=== PATIENT | male | born 1945 | race Caucasian/White ===

== ENCOUNTER 2018-04-18 08:10 | Observation (INO) | payer OTHER ==
[~2018-04-18] VITALS: Ht 167.6 cm; Wt 100.6 kg
[~2018-04-18 08:10] MED LIST: ULTRAM50 MG PO
[2018-04-18 08:46] LABS: BASOPHIL (%) 0.3 % (0-1); EOSINOPHIL COUNT 0.2 K/uL (0-0.3); HEMATOCRIT 42.2 % (38.0-50.0); HEMOGLOBIN 14.4 G/DL (12.5-16.6); IMMATURE GRANULOCYTE (%) 0.3 % (0.0-0.7); LYMPHOCYTE (%) 15.1 % (15-42); LYMPHOCYTE COUNT 1.5 K/uL (1.0-2.8); MCH 29.7 PG (29.0-34.0); MCHC 34.1 G/DL (30.0-36.0); MONOCYTE (%) 7.9 % (3-12); MONOCYTE COUNT 0.8 K/uL (0-0.8); NEUTROPHIL (%) 74.4 % (45-76); NEUTROPHIL COUNT 7.5 K/uL (1.8-6.4); PLATELET COUNT 197 K/uL (156-360); RBC DIS.WIDTH-CV 14.2 % (11.8-14.6); RBC DIS.WIDTH-SD 45.1 % (39-53); RED BLOOD COUNT 4.85 M/uL (4.00-5.50); WHITE BLOOD COUNT 10.1 K/uL (4.1-10.2)
[2018-04-18 08:52] LABS: INTER. NORMALIZED RATIO 1.2
[2018-04-18 08:55] LABS: PTT 24.9 SEC (25-37)
[2018-04-18 09:03] LABS: ALBUMIN 4.1 g/dL (3.2-4.8); CHLORIDE 103 mEq/L (99-109); POTASSIUM 3.5 mEq/L (3.7-5.4); SODIUM 139 mEq/L (136-147)
[2018-04-18 09:05] LABS: GLUCOSE 127 mg/dL (70-99)
[2018-04-18 09:07] LABS: TOTAL BILIRUBIN 0.9 mg/dL (0.0-1.0)
[2018-04-18 09:09] LABS: ALKALINE PHOSPHATASE 46 IU/L (3-129); GFR ESTIMATE (CALCULATED) > 59 mL/min/ (58.99-99999)
[2018-04-18 09:10] LABS: UREA NITROGEN (BUN) 12 mg/dL (9-23)
[2018-04-18 09:11] LABS: AST (GOT) 16 IU/L (2-34)
[2018-04-18 09:12] LABS: ALT (GPT) 19 IU/L (3-49); LIPASE 20 U/L (1.0-51.0)
[2018-04-18 10:34] LABS: APPEARANCE CLEAR ((CLEAR)); BILIRUBIN NEGATIVE; BLOOD NEGATIVE; COLOR COLORLESS ((YELLOW)); GLUCOSE (STRIP) NEGATIVE; KETONES NEGATIVE; LEUKOCYTES NEGATIVE; NITRITE NEGATIVE; PROTEIN (STRIP) NEGATIVE; SPECIFIC GRAVITY 1.026 (1.000-1.030); UCUL ADDED? NO; UROBILINOGEN 0.2 MG/DL (0.2-1.0)
[2018-04-18] MEDS ORDERED: HYDROCHLOROTH12.5 M3 PO (11:20)
[2018-04-18] MEDS ORDERED: FENOFIBRATE160 M1 PO (11:21)
[2018-04-18] MEDS ORDERED: NIASPAN,SLO-N1000 MG PO (11:23)
[2018-04-18] MEDS ORDERED: LOSARTAN POTAS100 MG PO (11:23)
[2018-04-18] MEDS ORDERED: SOTALOL80 MG PO (11:23)
[2018-04-18] MEDS ORDERED: ZETIA10 MG PO (11:24)
[2018-04-18] MEDS ORDERED: VITAMIN D31000 UNI2 PO (11:24)
[2018-04-18] MEDS ORDERED: OMEGA-31000 M1 PO (11:25)
[2018-04-18] MEDS ORDERED: MAGNESIUM200 MG PO (11:25)
[2018-04-18] MEDS ORDERED: VITAMIN E200 UNI2 PO (11:29)
[2018-04-18] MEDS ORDERED: ASPIRIN325 MG PO (11:31)
[2018-04-18] MEDS ORDERED: ALEVE220 MG PO (11:31)
[2018-04-18 12:37] VITALS: BP 166/75
[2018-04-18 14:41] VITALS: BP 147/72
[2018-04-18 19:53] VITALS: BP 140/73
[2018-04-18 23:47] VITALS: BP 146/71
[2018-04-19 03:51] VITALS: BP 147/70
[2018-04-19 07:11] LABS: HEMATOCRIT 35.6 % (38.0-50.0); MCHC 33.4 G/DL (30.0-36.0); MCV 86.6 FL (86-99); PLATELET COUNT 180 K/uL (156-360); RBC DIS.WIDTH-CV 14.1 % (11.8-14.6); RED BLOOD COUNT 4.11 M/uL (4.00-5.50); WHITE BLOOD COUNT 9.6 K/uL (4.1-10.2)
[2018-04-19 07:26] LABS: HEMOGLOBIN 11.9 G/DL (12.5-16.6)
[2018-04-19 07:42] VITALS: BP 175/81
[2018-04-19] MEDS ORDERED: FLAGYL500 MG PO (10:32)
[2018-04-19] MEDS ORDERED: CIPRO500 MG PO (10:32)
[2018-04-19] MEDS ORDERED: NORCO 5/3251 TABLET PO (10:32)
[2018-04-19 11:06] VITALS: BP 143/77
[2018-04-19 11:32] LABS: ALBUMIN 3.6 G/DL (3.2-4.8); ALKALINE PHOSPHATASE 34 IU/L (3-129); ALT (GPT) 14 IU/L (3-49); AST (GOT) 13 IU/L (2-34); CHLORIDE 99 MEQ/L (99-109); GFR ESTIMATE (CALCULATED) > 59 mL/min/ (58.99-99999); GLUCOSE 114 mg/dL (70-99); POTASSIUM 3.6 MEQ/L (3.7-5.4); SODIUM 134 MEQ/L (136-147); TOTAL BILIRUBIN 1.1 MG/DL (0.0-1.0); UREA NITROGEN (BUN) 13 mg/dL (9-23)
== END 2018-04-19 13:40 | disposition home or self-care (01) ==
LOC: EME 08:10 → 2EAST 11:24 → EDOF 11:24 → 2EAST 12:07
PROVIDERS: Emergency Medicine; Surgery
PROC: 0DTJ4ZZ Resection of Appendix, Percutaneous Endoscopic Approach (ICD-10-PCS; principal; 2018-04-18)
PROC: 0WQF0ZZ Repair Abdominal Wall, Open Approach (ICD-10-PCS; principal; 2018-04-18)
DX: K35.2 Acute appendicitis with generalized peritonitis (principal); K38.1 Appendicular concretions; K42.9 Umbilical hernia without obstruction or gangrene; I25.10 Atherosclerotic heart disease of native coronary artery without angina pectoris; Z95.1 Presence of aortocoronary bypass graft; I25.2 Old myocardial infarction; E78.5 Hyperlipidemia, unspecified; M35.3 Polymyalgia rheumatica; F17.210 Nicotine dependence, cigarettes, uncomplicated; Z79.82 Long term (current) use of aspirin; Z88.1 Allergy status to other antibiotic agents; Z88.8 Allergy status to other drugs, medicaments and biological substances
CPT/HCPCS: 71045; 74177; 80053; 81003; 83690; 85025; 85027; 85610; 85730; 88304; 93005; 94660; 99281; 99285; C9113; G0378; J0131; J0330; J0744; J1100; J1170; J1335; J1650; J1885; J2405; J2710; J3010; J7040; J7050; J7120; J7643; S0030